=== PATIENT | female | born 1990 | race Caucasian/White ===

== ENCOUNTER 2016-11-26 13:52 | Emergency (ER) | payer OTHER ==
[2016-11-26] MEDS ORDERED: 0.9 % SODIUM CHLORIDE 1,000 ML IV ONE (14:02)
[2016-11-26] MEDS ORDERED: ONDANSETRON HCL/PF 4 MG/ 2ML VIAL IVP ONE (14:03)
[2016-11-26] MEDS ORDERED: KETOROLAC TROMETHAMINE 30 MG/1ML VIAL IVP ONE (14:03)
[2016-11-26 14:33] LABS: BASOPHILS % 0.5 (0.0-1.5); EOSINOPHILS % 0.5 % (0.0-6.8); MEAN CORPUSCULAR HEMOGLOBIN 31.3 pg (28.0-34.0); MEAN CORPUSCULAR VOLUME 92.7 fl (80.0-100.0); MONOCYTES % 3.2 % (0.0-11.0); NEUTROPHILS # 3.9 # k/uL (1.4-7.7)
--- NOTE | 2016-11-26 14:46 | ED Physician Documentation ---
General Adult - HISTORIAN Historian: patient - HPI Stated Complaint: withdrawal symptoms Chief Complaint: General Adult Onset: hours Further Comments: yes (26 year old female presents with complaints of leg cramping and twitching. [facility]ed [facility] yesterday, states she last used Heroin yesterday morning. Reports using 2G per day, injects into hands. Requesting something for her nerves) - ROS CONST: no problems EYES/ENT: none CVS/RESP: none GI/: none MS/SKIN/LYMPH: none NEURO/PSYCH: headache, difficulty walking, anxiety - PAST HX Past History: none Surgeries/Procedures: none Allergies/Adverse Reactions: Allergies Allergy/AdvReac Type Severity Reaction Status Date / Time Penicillins Allergy Verified 11/26/16 14:07 Home Medications: Ambulatory Orders Medication Instructions Recorded NK [NK] 11/26/16 - SOCIAL HX Smoking History: cigarettes Drug Use: heroin (daily 2G) - FAMILY HX Family History: No - VITAL SIGNS Vital Signs: Vital Signs Temp Pulse Resp BP Pulse Ox 98.9 F 73 16 98 11/26/16 14:03 11/26/16 14:03 11/26/16 14:03 11/26/16 14:03 - REVIEWED ASSESSMENTS Nursing Assessment Reviewed: Yes Vitals Reviewed: Yes Progress - Progress Progress: Patient requesting "nerve" medication multiple times. Redirected and reassured multiple times. Wants IV out, encouraged patient to finishe IV fluids and give lab time to run. Patient pulled out IV and left AMA. [facility] called by RN. ED Results Lab/Radiology - Lab Results Lab Results: Lab Results 11/26/16 14:30 WBC 5.00 K/ul K/ul (4.00-12.00) RBC 4.57 M/ul M/ul (3.90-5.20) Hgb 14.3 g/dL g/dL (12.0-16.0) Hct 42.4 % % (34.5-46.5) MCV 92.7 fl fl (80.0-100.0) MCH 31.3 pg pg (28.0-34.0) MCHC 33.8 g/dL g/dL (30.0-36.0) RDW 12.5 % % (11.3-14.3) Plt Count 252 K/mm3 K/mm3 (130-400) Neut % (Auto) 77.0 % % (39.0-79.0) Lymph % (Auto) 17.8 % % (16.0-50.0) [place] % (Auto) 3.2 % % (0.0-11.0) Eos % (Auto) 0.5 % % (0.0-6.8) Baso % (Auto) 0.5 (0.0-1.5) Neut # 3.9 # k/uL # k/uL (1.4-7.7) Lymph # 0.9 # k/uL # k/uL (0.6-4.0) [place] # 0.2 # k/uL # k/uL (0.0-0.9) Eos # 0.0 # k/uL # k/uL (0.0-0.6) Baso # 0.0 # k/uL # k/uL (0.0-0.5) Reactive Lymphs % 1.0 % % (0.0-5.0) Reactive Lymphs # 0.0 # k/uL # k/uL (0.0-0.8) - Orders Orders: ED Orders Category Date Time Status Place Saline Lock/IV NOW Care 11/26/16 14:02 Active CBC/PLATELET/DIFF Stat Lab 11/26/16 14:30 Completed CMP Stat Lab 11/26/16 14:30 Received Urine drug screen [DRUG SCREEN URINE MEDICAL ONLY] Stat Lab 11/26/16 Ordered 0.9 % Sodium Chloride [Normal Saline] 1,000 ml Med 11/26/16 14:02 Discontinued IV NOW Ketorolac Tromethamine [Toradol] Med 11/26/16 14:03 Discontinued 30 mg IVP NOW ONE Ondansetron HCl/Pf [Zofran 4 mg/2 ml] Med 11/26/16 14:03 Discontinued 4 mg IVP NOW ONE General Adult Physical Exam - PHYSICAL EXAM GENERAL APPEARANCE: anxious EENT: eye inspection normal, CONSUELO RESPIRATORY: no resp distress, chest non-tender, breath sounds normal CVS: reg rate & rhythm, heart sounds normal, equal pulses, no murmur, no gallop , PMI nml, no JVD, no friction rub, 24 ABDOMEN: soft, no organomegaly, normal bowel sounds, no abdominal bruit, no distension SKIN: warm/dry, normal color, other (track diego noted on bilateral hands) NEURO: oriented X3, CN's nml as tested, motor nml, sensation nml Discharge Clincal Impression: Left against medical advice Home Medications: Ambulatory Orders NK [NK] 11/26/16 Condition: Stable Disposition: 07 AGAINST MEDICAL ADVICE Decision to Admit: NO Decision Time: 14:50
[2016-11-26 14:57] LABS: eGFR (African) > 60; eGFR (Non-African) > 60
== END 2016-11-26 14:45 | disposition left against medical advice (07) ==
LOC: ED 13:52
DX: F11.20 Opioid dependence, uncomplicated (principal); F17.210 Nicotine dependence, cigarettes, uncomplicated; Z53.21 Procedure and treatment not carried out due to patient leaving prior to being seen by health care provider
CPT/HCPCS: 80053; 85025; 96361; 96374; 96375; 99283; J1885; J2405; J7030; S1016

== ENCOUNTER 2017-04-07 21:04 | Emergency (ER) | payer BC, OTHER ==
[2017-04-07] MEDS ORDERED: CEFTRIAXONE SODIUM IM ONE (22:06)
[2017-04-07] MEDS ORDERED: SODIUM CHLORIDE 0.9% IM ONE (22:06)
[2017-04-07] MEDS ORDERED: AZITHROMYCIN 250 MG TABLET PO ONE (22:07)
--- NOTE | 2017-04-07 22:38 | ED Physician Documentation ---
Female Urogenital Problems - HISTORIAN Historian: patient - HPI Stated Complaint: vaginal abcess Chief Complaint: Female Urogenital Problems Onset: days ago Severity: severe Location of Pain: other (right labia pain) Further Comments: yes (26 year old female patient presents with complaints of right labial pain for the past week. Complains of severe pain.) - Vaginal Bleeding Sexual History: active - Associated Symptoms Discharge: denies: vaginal discharge, vaginal fluid leakage, odorous discharge, yellowish discharge - ROS CONST: none GI/: denies: nausea, vomiting, decreased appetite, diarrhea, black stools, bloody stools, other CVS/RESP: none EYES/ENT: none NEURO/PSYCH: none MS/SKIN/LYMPH: none - PAST HX Past History: other (bartholin cyst) Other History: other (anxiety) Allergies/Adverse Reactions: Allergies Allergy/AdvReac Type Severity Reaction Status Date / Time Penicillins Allergy Verified 11/26/16 14:07 Sulfa (Sulfonamide Allergy Verified 04/07/17 21:26 Antibiotics) Home Medications: Ambulatory Orders Medication Instructions Recorded Doxycycline Monohydrate 100 mg PO BID #20 capsule 04/07/17 [Vibramycin] - SOCIAL HX Smoking History: non-smoker - FAMILY HX Family History: none - VITAL SIGNS Vital Signs: Vital Signs Temp Pulse Resp BP Pulse Ox 99.1 F 109 H 14 118/84 98 04/07/17 21:08 04/07/17 21:08 04/07/17 21:08 04/07/17 21:08 04/07/17 21:08 - REVIEWED ASSESSMENTS Nursing Assessment Reviewed: Yes Vitals Reviewed: Yes Progress - Progress Progress: After external exam, patient reported unprotected sex with her boyfriend who had a whitish green penile discharge 2 weeks ago. Patient concerned she may have an STD. Offered STD testing. Speculum exam - extremely tender to touch, cervical motion tenderness; scant yellow discharge noted on cervix. STD testing sent for GC&C and trichomoniasis. Patient refused Rocephin IM injection - risks and benefits explained; verbalized understanding. Refusal form completed. ED Results Lab/Radiology - Orders Orders: ED Orders Category Date Time Status CHLAMYDIA & GONORRHOEAE Stat Lab 04/07/17 Ordered TRICHOMONAS & COLEEN PREP GENITAL Stat Lab 04/07/17 Ordered Azithromycin [Zithromax] Med 04/07/17 22:07 Discontinued 1,000 mg PO NOW ONE cefTRIAXone SODIUM [Rocephin] 125 gm Med 04/07/17 22:06 Discontinued 0.9 % Sodium Chloride [Sodium Chloride] 50 ml IM NOW Female Urogenital Problems - EXAM General Appearance: anxious EENT: eye inspection normal, CONSUELO Respiratory: no resp. distress, breath sounds nml CVS: reg rate & rhythm, heart sounds normal, equal pulses, no murmur, no gallop , PMI nml, no JVD, no friction rub, 24 Abdomen: soft, non-tender, no organomegaly, no distention, nml bowel sounds Pelvic: vaginal discharge (speculum exam), cerv.motion tenderness, other (2.5 cm abscess noted on right labia; no drainage, tender to palpation) Skin: color nml, no rash, warm,dry Extremities: non-tender, normal range of motion, no evidence of injury, no edema , J, [employer]IST Neuro: oriented X3, CN's nml as tested, motor nml, sensation nml, mood/affect nml Discharge Prescriptions: Doxycycline Monohydrate [Vibramycin] 100 mg PO BID #20 capsule Referrals: Primary Doctor,No [Primary Care Provider] - 2 Days Home Medications: Ambulatory Orders Doxycycline Monohydrate [Vibramycin] 100 mg PO BID #20 capsule 04/07/17
[2017-04-07 23:11] VITALS: BP 102/64
== END 2017-04-07 22:20 | disposition home or self-care (01) ==
LOC: ED 21:04
DX: N76.0 Acute vaginitis (principal)
CPT/HCPCS: 87210; 87801; J0696; 99283